=== PATIENT | male | born 1945 | race Caucasian/White ===

== ENCOUNTER 2021-11-15 12:08 | Day surgery (SDC) | payer OTHER, SELFPAY ==
[2021-11-15 12:43] VITALS: BP 117/89; PULSE 68; RESP 20; TEMP 36.3; O2SAT 98
[2021-11-15] MEDS: Tropicam./Phenyleph. (1/2.5%) 5 ML BTL OS ×3 (12:59→13:09)
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
[2021-11-15 14:00] VITALS: BMI 25.9
[2021-11-15] MEDS: Tetracaine 0.5% 4 ML BTL OS (14:04)
[2021-11-15] MEDS: Balanced Salt Soln.-PLUS 500 ML BAG (14:05)
[2021-11-15] MEDS: Duovisc Viscoelastic System EACH 1 EACH (14:06)
[2021-11-15] MEDS: Lidocaine 2% Jelly 6 ML SYR (14:08)
[2021-11-15] MEDS: Povidone-Iodine Ophth 30 ML BTL (14:09)
--- NOTE | 2021-11-15 14:14 | W.PM.DSUDISC ---
Discharge Plan Disposition Patient Disposition: HOME Condition: Good Discharge Details Attending Provider: Trell Suarez Primary Care Provider: Aria Blum Home Meds and New Rx's Prescriptions: No Action diclofenac sodium 3 % Gel 1 applic TOPICAL BID PRN0RF atenolol 100 mg Tablet 100 mg PO DAILY 0RF methadone 10 mg Tablet 80 mg PO DAILY 0RF ibuprofen 200 mg Tablet 200 mg PO Q6H PRN0RF aspirin 325 mg Tablet 325 mg PO DAILY PRN0RF Discharge Instructions Stand Alone Forms: Post-op Topical Cataract, Haroon Cohn (DSU) Discharge Orders Discharge Orders: Discharge Order (Routine); Ordered 11/15/21 Ordered By: Trell Suarez DS: Diagnosis Discharge Diagnosis (1) Nuclear sclerotic cataract of left eye: Status: Resolved
--- NOTE | 2021-11-15 14:15 | W.PM.OP ---
Operative Note Operative Note DATE OF PROCEDURE: 11/15/21 PRE-OP DIAGNOSIS: Nuclear cataract, left eye POST-OP DIAGNOSIS: same PROCEDURE: Cataract extraction using phacoemulsification with intraocular lens implant, left eye SURGEON: Trell Suarez ANESTHESIA TYPE: Local By Surgeon and MAC Refer to Anesthesia Record PATHOLOGY: none sent COMPLICATIONS: None Patient was transported to: same day Patient's condition: stable Implants: Romeo and Romeo / [employer] Tecnis [id number] Indications: Progressive decreased vision due to cataract, left eye Procedure Description: CATARACT SURGERY OPERATIVE REPORT PREOPERATIVE DIAGNOSIS: 1. Nuclear cataract, left eye POSTOPERATIVE DIAGNOSIS: Same OPERATION: 1. Cataract extraction using phacoemulsification with posterior chamber intraocular lens implant, left eye. IOL: IOL Sensitizer/Model: Romeo & Romeo / DARIAN Tecnis [id number] IOL Power: + 19.5 diopters IOL Serial Number: [id number] Optic Diameter: 6.0 mm Haptic/Overall Diameter: 13.0 mm PHACO INFO: Arun Smartererurion Vision System with OZil and Active Fluidics Cumulative Dispersed Energy (CDE): 13.17 seconds SURGEON: Trell Suarez MD, DILIP ANESTHESIA: Monitored A [facility] (MAC), with local sub-tenon's anesthetic infiltration COMPLICATIONS: None SPECIMENS: None INDICATIONS FOR PROCEDURE: The patient is a 76-year-old gentleman with history of diminished visual acuity in both eyes secondary to the development of bilateral nuclear cataract. He is significantly symptomatic that he desires cataract surgery and attempt to improve and maximize his vision. He has a history of myopia with refractive error of approximately -3.0 diopters. He desires to remain myopic postoperatively so he can continue to read without glasses. PROCEDURE: The correct surgical eye was identified and marked as the left eye and the pupil was dilated in the preoperative area using mydriatics and cycloplegics. Positioning was quite challenging due to severe kyphosis. The dilated pupil size was 7.0 mm. He elected to proceed without oral sedation. The patient was brought to the operating room where cardiopulmonary monitoring was instituted and surgical time-out was performed, confirming the correct operative eye and IOL power. Topical anesthesia was administered and ophthalmic povidone-iodine 5% was instilled into the conjunctival fornices. Lidocaine gel was applied to the cornea and the lisette-ocular area was prepped with Betadine 10% solution and draped in the usual sterile fashion for intraocular surgery, including an aperture drape. A Tegaderm transparent film dressing was cut in half and used to cover the lashes and lid margins. Care was taken to sequester the lashes and lid margins under the Tegaderm dressing. A lid speculum was placed between the lids of the operative eye and the Arun LuxOR Revalia operating microscope was maneuvered into position. Shar scissors were then used to make a conjunctival buttonhole approximately 6mm posterior to the limbus in the inferonasal quadrant. Blunt dissection was carried out to expose bare sclera, and a blunt-tipped sub-tenon?s anesthesia cannula was introduced and passed posteriorly along the globe where non-preserved plain lidocaine was injected into posterior sub-Tenon?s space. A sideport knife was used to make a paracentesis port superiorly/superiortemporally. Intraocular phenylephrine/lidocaine was injected int the anterior chamber.. The anterior chamber was filled with viscoelastic. A 2.4mm keratome knife was used to create a half-thickness groove at the limbus and then to construct a three-plane near-clear corneal tunnel extending 2.0mm into clear cornea at the 3:00 position. A flap was raised on the anterior capsule and capsulorhexis forceps were used to complete a continuous curvilinear capsulorhexis of 5.0 mm. Balanced salt solution was then used to perform cortical cleaving hydrodissection and nuclear hydrodelineation until the lens could be freely rotated within the capsular bag. The lens nucleus was then disassembled and removed within the capsular bag and iris plane using phacoemulsification. Residual cortical material was removed using the 45-degree angled silicone I/A tip with 0.3mm port. The posterior capsule was carefully polished to remove as much residual lens epithelial cells as safely possible. The capsular bag was then inflated and the anterior chamber deepened with viscoelastic. The lens implant described above was inserted into the capsular bag using the DARIAN [place] Injector. A Kuglen hook was used to dial the IOL into position. Residual viscoelastic was then removed first from posterior to the IOL, then from the anterior chamber using the I/A handpiece. The lens implant was noted to center nicely within the capsular bag. The incisions were stromally hydrated, and the anterior chamber was reformed using BSS. Then 0.5cc of moxifloxacin 1.0mg/ml were injected into the capsular bag and anterior chamber. The incisions were checked with a Weck spear and found to be secure. Several drops of ophthalmic povidone-iodine 5% were then applied to the eye followed by two drops of Imprimis combination prednisolone/moxifloxacin/nepafenac solution. The drapes were removed and a clear plastic protective eye shield was placed over the eye. The patient was then returned to Same Day Surgery in stable condition.
[2021-11-15 14:25] VITALS: BP 151/90; PULSE 63; RESP 16; TEMP 36.1; O2SAT 95
--- NOTE | 2021-11-15 14:35 | W.ANESPOSTOP ---
Postoperative Evaluation Date, Time and Location Date Performed: 11/15/21 Time Performed: 14:36 Patient Location: Day Surgery Unit Vital Signs Most Recent Imported Vital Signs: Most Recent Vital Signs Temp Pulse Resp BP Pulse Ox 36.1 C L 63 16 151/90 H 95 11/15/21 14:25 11/15/21 14:25 11/15/21 14:25 11/15/21 14:25 11/15/21 14:25 Pain Score Most Recent Pain Score: Most Recent Pain Score Pain Level 0 11/15/21 14:25 Assessment Mental Status: Awake (Alert & Oriented to Patient Baseline) Airway and Respiratory Function: Patent airway with normal (patient baseline) respiratory exam Cardiovascular Function: Hemodynamically Stable Hydration Status: Adequately Hydrated Nausea & Vomiting: No Nausea or Vomiting Pain: Pt. Denies Any Pain Peripheral Nerve Block: Patient did not receive a nerve block
== END 2021-11-15 14:40 | disposition home or self-care (01) ==
PROVIDERS: PCP Internal Medicine; Visit Provider Ophthalmology
PROC: (CPT 66984; principal; 2021-11-15 13:30)
DX: H25.12 Age-related nuclear cataract, left eye (principal); I10 Essential (primary) hypertension; F17.210 Nicotine dependence, cigarettes, uncomplicated
CPT/HCPCS: 66984; V2632

== ENCOUNTER 2021-11-29 08:04 | Day surgery (SDC) | payer OTHER, SELFPAY ==
[2021-11-29 08:15] VITALS: BP 157/96; PULSE 55; RESP 17; TEMP 36.6; O2SAT 95
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
[2021-11-29] MEDS: Tropicam./Phenyleph. (1/2.5%) 5 ML BTL OD ×3 (08:50→09:00)
[2021-11-29 09:11] VITALS: BMI 25.9
[2021-11-29] MEDS: Balanced Salt Soln.-PLUS 500 ML BAG (09:46)
[2021-11-29] MEDS: Tetracaine 0.5% 4 ML BTL OD (09:46)
[2021-11-29] MEDS: Duovisc Viscoelastic System EACH 1 EACH (09:47)
[2021-11-29] MEDS: Lidocaine 2% Jelly 6 ML SYR (09:48)
[2021-11-29] MEDS: Povidone-Iodine Ophth 30 ML BTL (09:50)
[2021-11-29 10:13] VITALS: BP 163/90; PULSE 60; RESP 16; TEMP 36.3; O2SAT 95
--- NOTE | 2021-11-29 10:13 | W.PM.DSUDISC ---
Discharge Plan Disposition Patient Disposition: HOME Condition: Good Discharge Details Attending Provider: Trell Suarez Primary Care Provider: Aria Blum Home Meds and New Rx's Prescriptions: No Action diclofenac sodium 3 % Gel 1 applic TOPICAL BID PRN0RF atenolol 100 mg Tablet 100 mg PO DAILY 0RF methadone 10 mg Tablet 80 mg PO DAILY 0RF ibuprofen 200 mg Tablet 200 mg PO Q6H PRN0RF aspirin 325 mg Tablet 325 mg PO DAILY PRN0RF pregabalin 150 mg capsule 150 mg PO PRN PRN0RF Discharge Instructions Stand Alone Forms: Post-op Topical Cataract, Haroon Holleyey ([facility]U) Discharge Orders Discharge Orders: Discharge Order (Routine); Ordered 11/29/21 Ordered By: Trell Suarez
--- NOTE | 2021-11-29 10:14 | W.PM.OP ---
Date of service: 11/29/21 Time of Service: 10:14 Operative Note Operative Note DATE OF PROCEDURE: 11/29/21 PRE-OP DIAGNOSIS: Nuclear cataract, right eye POST-OP DIAGNOSIS: same PROCEDURE: Cataract extraction using phacoemulsification with intraocular lens implant, right eye SURGEON: Trell Suarez ANESTHESIA TYPE: Local By Surgeon and MAC Refer to Anesthesia Record ESTIMATED BLOOD LOSS: 0 PATHOLOGY: none sent COMPLICATIONS: None Patient was transported to: same day Patient's condition: stable Implants: Romeo & Romeo/DARIAN Tecnis [id number] Indications: Progressive visual loss due to cataract, right eye Procedure Description: CATARACT SURGERY OPERATIVE REPORT PREOPERATIVE DIAGNOSIS: 1. Nuclear cataract, right eye POSTOPERATIVE DIAGNOSIS: Same OPERATION: 1. Cataract extraction using phacoemulsification with posterior chamber intraocular lens implant, right eye. IOL: IOL Security Operations Analyst/Model: Romeo & Romeo / DARIAN Tecnis ZCB00 IOL Power: + 20.5 diopters IOL Serial Number: [id number] Optic Diameter: 6.0mm Haptic/Overall Diameter: 13.0mm PHACO INFO: ArunXtimeon Vision System with OZil and Active Fluidics Cumulative Dispersed Energy (CDE): 12.99 seconds SURGEON: Trell Suarez MD, DILIP ANESTHESIA: Monitored Anesthesia Care (MAC), with local sub-tenon's anesthetic infiltration COMPLICATIONS: None SPECIMENS: None INDICATIONS FOR PROCEDURE: Patient is a 76-year-old male with history of progressive decreased vision in both eyes secondary to the development of bilateral nuclear cataract. He has already undergone cataract surgery in the left eye and is doing well postoperatively. Postoperative refractive target is -3.0 so he can read without glasses. He now presents for cataract surgery in the right eye. PROCEDURE: The correct surgical eye was identified and marked as the right eye and the pupil was dilated in the preoperative area using mydriatics and cycloplegics. The dilated pupil size was 7.0 mm. He elected to proceed without oral sedation. The patient was brought to the operating room where cardiopulmonary monitoring was instituted and surgical time-out was performed, confirming the correct operative eye and IOL power. Positioning was challenging. Topical anesthesia was administered and ophthalmic povidone-iodine 5% was instilled into the conjunctival fornices. Lidocaine gel was applied to the cornea and the lisette-ocular area was prepped with Betadine 10% solution and draped in the usual sterile fashion for intraocular surgery, including an aperture drape. A Tegaderm transparent film dressing was cut in half and used to cover the lashes and lid margins. Care was taken to sequester the lashes and lid margins under the Tegaderm dressing. A lid speculum was placed between the lids of the operative eye and the Arun LuxOR Revalia operating microscope was maneuvered into position. Shar scissors were then used to make a conjunctival buttonhole approximately 6mm posterior to the limbus in the inferonasal quadrant. Blunt dissection was carried out to expose bare sclera, and a blunt-tipped sub-tenon?s anesthesia cannula was introduced and passed posteriorly along the globe where non-preserved plain lidocaine was injected into posterior sub-Tenon?s space. A sideport knife was used to make a paracentesis port inferotemporally. Intraocular phenylephrine/lidocaine was injected into the anterior chamber. The anterior chamber was filled with viscoelastic. A 2.4mm keratome knife was used to create a half-thickness groove at the limbus and then to construct a three-plane near-clear corneal tunnel extending 2.0mm into clear cornea superiortemporally. A flap was raised on the anterior capsule and capsulorhexis forceps were used to complete a continuous curvilinear capsulorhexis of 4.5 cm flap neck is moving in the right spine focus with my left buttock about 2 try to hold myself in the right position mm. Balanced salt solution was then used to perform cortical cleaving hydrodissection and nuclear hydrodelineation until the lens could be freely rotated within the capsular bag. The lens nucleus was then disassembled and removed within the capsular bag and iris plane using phacoemulsification. Residual cortical material was removed using the I/A handpiece. The posterior capsule was carefully polished to remove as much residual lens epithelial cells as safely possible. The capsular bag was then inflated and the anterior chamber deepened with viscoelastic. The lens implant described above was inserted into the capsular bag using the DARIAN [place] Injector. A Kuglen hook was used to dial the IOL into position. Residual viscoelastic was then removed first from posterior to the IOL, then from the anterior chamber using the I/A handpiece. The lens implant was noted to center nicely within the capsular bag. The incisions were stromally hydrated, and the anterior chamber was reformed using BSS. Then 0.5cc of moxifloxacin 1.0mg/ml were injected into the capsular bag and anterior chamber. The incisions were checked with a Weck spear and found to be secure. Several drops of ophthalmic povidone-iodine 5% were then applied to the eye followed by two drops of Imprimis combination prednisolone/moxifloxacin/nepafenac solution. The drapes were removed and a clear plastic protective eye shield was placed over the eye. The patient was then returned to Same Day Surgery in stable condition.
--- NOTE | 2021-11-29 10:25 | W.ANESPOSTOP ---
Postoperative Evaluation Date, Time and Location Date Performed: 11/29/21 Time Performed: 10:25 Patient Location: Day Surgery Unit Vital Signs Most Recent Imported Vital Signs: Most Recent Vital Signs Temp Pulse Resp BP Pulse Ox 36.3 C L 60 16 163/90 H 95 11/29/21 10:13 11/29/21 10:13 11/29/21 10:13 11/29/21 10:13 11/29/21 10:13 Pain Score Most Recent Pain Score: Most Recent Pain Score Pain Level 0 11/29/21 10:13 Assessment Mental Status: Awake (Alert & Oriented to Patient Baseline) Airway and Respiratory Function: Patent airway with normal (patient baseline) respiratory exam Cardiovascular Function: Hemodynamically Stable Hydration Status: Adequately Hydrated Nausea & Vomiting: No Nausea or Vomiting Pain: Pt. Denies Any Pain Peripheral Nerve Block: Patient did not receive a nerve block
== END 2021-11-29 10:39 | disposition home or self-care (01) ==
PROVIDERS: PCP Internal Medicine; Visit Provider Ophthalmology
PROC: (CPT 66984; principal; 2021-11-29 09:45)
DX: H25.041 Posterior subcapsular polar age-related cataract, right eye (principal); I10 Essential (primary) hypertension; F17.210 Nicotine dependence, cigarettes, uncomplicated
CPT/HCPCS: 66984; V2632